=== PATIENT | male | born 1955 | race Caucasian/White ===

== ENCOUNTER → 2016-12-18 | Outpatient (CLI) | payer BC ==
[~2016-12-18] MED LIST: ASPIRIN81 MG PO; FLOMAX0.4 MG PO; LIPITOR80 MG PO; NITROSTAT0.4 MG SL; TOPROL XL25 MG PO; [UNRECOGNIZED DRUG - OTHER] INJECT
== END | disposition short-term general hospital (02) ==
LOC: CLCARD 08:24
DX: I25.10 Atherosclerotic heart disease of native coronary artery without angina pectoris (principal); E78.5 Hyperlipidemia, unspecified; R79.89 Other specified abnormal findings of blood chemistry; Z95.1 Presence of aortocoronary bypass graft

== ENCOUNTER → 2017-03-19 | Outpatient (CLI) | payer BC | END | disposition short-term general hospital (02) | LOC: CLCARD 09:26 | DX: I25.10 Atherosclerotic heart disease of native coronary artery without angina pectoris (principal); E78.5 Hyperlipidemia, unspecified; R53.83 Other fatigue; Z95.1 Presence of aortocoronary bypass graft ==